=== PATIENT | female | born 1985 | race Caucasian/White ===

== ENCOUNTER 2019-01-11 16:59 | Inpatient (IN) | payer OTHER ==
--- NOTE | 2019-01-11 17:14 | ED ---
General Adult HPI - General Chief complaint: Arrhythmia/Palpitations Stated complaint: AFIB Time Seen by Provider: 01/11/19 17:03 Source: patient, EMS, RN notes reviewed Mode of arrival: EMS Limitations: no limitations - History of Present Illness Initial comments: Patient is a pleasant 33-year-old female presenting to the emergency Department with palpitations. Onset of symptoms was prior to arrival. Patient did not feel well and had palpitations with associated nausea. Patient did vomit once. Patient did have some mild dyspnea earlier however that has resolved. Patient still has palpitations however mild at this time. No history of similar symptoms previously. EMS did have concern for atrial flutter with RVR. Rate was up to 200. Amiodarone was provided, 150 mg and patient states symptoms have improved however not resolved. No chest pain. - Related Data Home Medications Medication Instructions Recorded Confirmed Ergocalciferol [Vitamin D2 50,000 unit PO MO 01/11/19 01/11/19 (DRISDOL)] Sertraline [Zoloft] 100 mg PO DAILY 01/11/19 01/11/19 Allergies Allergy/AdvReac Type Severity Reaction Status Date / Time No Known Allergies Allergy Verified 01/11/19 17:24 Review of Systems ROS Statement: Those systems with pertinent positive or pertinent negative responses have been documented in the HPI. ROS Other: All systems not noted in ROS Statement are negative. Constitutional: Denies: fever Eyes: Denies: eye pain ENT: Denies: ear pain Respiratory: Denies: cough Cardiovascular: Reports: palpitations. Denies: chest pain Endocrine: Denies: fatigue Gastrointestinal: Denies: abdominal pain Genitourinary: Denies: dysuria Musculoskeletal: Denies: back pain Skin: Denies: rash Neurological: Denies: weakness Past Medical History Past Medical History: Atrial Fibrillation History of Any Multi-Drug Resistant Organisms: None Reported Past Surgical History: Cholecystectomy Additional Past Surgical History / Comment(s): csection Past Psychological History: Depression Smoking Status: Never smoker Past Alcohol Use History: Rare Past Drug Use History: None Reported General Exam Limitations: no limitations General appearance: alert, in no apparent distress Head exam: Present: atraumatic Eye exam: Present: normal appearance, PERRL ENT exam: Present: normal oropharynx Neck exam: Present: normal inspection Respiratory exam: Present: normal lung sounds bilaterally Cardiovascular Exam: Present: tachycardia, irregular rhythm Expanded Peripheral pulses: 2+: Radial (R), Radial (L), Dorsalis Pedis (R), Dorsalis Pedis (L) GI/Abdominal exam: Present: soft. Absent: tenderness Extremities exam: Present: normal inspection. Absent: pedal edema, calf tenderness Neurological exam: Present: alert Psychiatric exam: Present: normal affect, normal mood Skin exam: Present: normal color Course Vital Signs 01/11/19 01/11/19 17:01 17:44 Temperature 97.7 F Pulse Rate 148 H 140 H Respiratory 20 16 Rate Blood Pressure 106/93 107/85 O2 Sat by Pulse 100 97 Oximetry - Reevaluation(s) Reevaluation #1: 01/11/19 17:13 Case was discussed in detail with Dr. Arauz, who does recommend switching to Cardizem. He will be placed on consult. EKG Findings - EKG Comments: EKG Findings:: Atrial flutter with a rate of 148. QRS 90. QT 318. QTC 499. Normal axis. LVH with repolarization change. Nonspecific T waves. Medical Decision Making - Medical Decision Making Patient reevaluated and resting comfortably in bed. Systolic pressure pressure 107. Heart rate 122 and variable. Patient and family updated on results and plan. Echo will be ordered. nurse practitioner physicians assistant: Patient was placed on coil repair technician secondary to arrhythmia and for monitoring purposes. Heart rate is atrial fibrillation with rate vary ing between 90 and 1:30. Dr. lyn has been paged for admission, covering for Dr. Mcleod. - Lab Data Result diagrams: 01/11/19 17:10 01/11/19 17:10 Lab Results 01/11/19 01/11/19 01/11/19 Range/Units 17:10 17:10 17:10 WBC 9.2 (3.8-10.6) k/uL RBC 5.16 (3.80-5.40) m/uL Hgb 15.5 (11.4-16.0) gm/dL Hct 45.5 (34.0-46.0) % MCV 88.3 (80.0-100.0) fL MCH 30.1 (25.0-35.0) pg MCHC 34.1 (31.0-37.0) g/dL RDW 14.5 (11.5-15.5) % Plt Count 148 L (150-450) k/uL Neutrophils % 64 % Lymphocytes % 27 % Monocytes % 4 % Eosinophils % 3 % Basophils % 2 % Neutrophils # 5.9 (1.3-7.7) k/uL Lymphocytes # 2.5 (1.0-4.8) k/uL Monocytes # 0.3 (0-1.0) k/uL Eosinophils # 0.2 (0-0.7) k/uL Basophils # 0.1 (0-0.2) k/uL PT 11.2 (9.0-12.0) sec INR 1.1 (<1.2) APTT 25.6 (22.0-30.0) sec Sodium 141 (137-145) mmol/L Potassium 4.0 (3.5-5.1) mmol/L Chloride 109 H (98-107) mmol/L Carbon Dioxide 21 L (22-30) mmol/L Anion Gap 11 mmol/L BUN 18 H (7-17) mg/dL Creatinine 0.72 (0.52-1.04) mg/dL Est GFR (CKD-EPI)AfAm >90 (>60 ml/min/1.73 sqM) Est GFR (CKD-EPI)NonAf >90 (>60 ml/min/1.73 sqM) Glucose 100 H (74-99) mg/dL Calcium 8.9 (8.4-10.2) mg/dL Magnesium 1.8 (1.6-2.3) mg/dL Total Bilirubin 0.9 (0.2-1.3) mg/dL AST 33 (14-36) U/L ALT 49 (9-52) U/L Alkaline Phosphatase 149 H (38-126) U/L Troponin I (0.000-0.034) ng/mL Total Protein 7.1 (6.3-8.2) g/dL Albumin 4.1 (3.5-5.0) g/dL 01/11/19 Range/Units 17:10 WBC (3.8-10.6) k/uL RBC (3.80-5.40) m/uL Hgb (11.4-16.0) gm/dL Hct (34.0-46.0) % MCV (80.0-100.0) fL MCH (25.0-35.0) pg MCHC (31.0-37.0) g/dL RDW (11.5-15.5) % Plt Count (150-450) k/uL Neutrophils % % Lymphocytes % % Monocytes % % Eosinophils % % Basophils % % Neutrophils # (1.3-7.7) k/uL Lymphocytes # (1.0-4.8) k/uL Monocytes # (0-1.0) k/uL Eosinophils # (0-0.7) k/uL Basophils # (0-0.2) k/uL PT (9.0-12.0) sec INR (<1.2) APTT (22.0-30.0) sec Sodium (137-145) mmol/L Potassium (3.5-5.1) mmol/L Chloride (98-107) mmol/L Carbon Dioxide (22-30) mmol/L Anion Gap mmol/L BUN (7-17) mg/dL Creatinine (0.52-1.04) mg/dL Est GFR (CKD-EPI)AfAm (>60 ml/min/1.73 sqM) Est GFR (CKD-EPI)NonAf (>60 ml/min/1.73 sqM) Glucose (74-99) mg/dL Calcium (8.4-10.2) mg/dL Magnesium (1.6-2.3) mg/dL Total Bilirubin (0.2-1.3) mg/dL AST (14-36) U/L ALT (9-52) U/L Alkaline Phosphatase (38-126) U/L Troponin I <0.012 (0.000-0.034) ng/mL Total Protein (6.3-8.2) g/dL Albumin (3.5-5.0) g/dL - Radiology Data Radiology results: image reviewed (Chest x-ray does show enlarged cardiac silhouette. Right atelectasis versus infiltrate.) Critical Care Time Critical Care Time: Yes Total Critical Care Time: 33 Disposition Clinical Impression: Atrial flutter, Tachycardia Disposition: ADMITTED IP TO THIS HOSP Is patient prescribed a controlled substance at d/c from ED?: No Referrals: Paty Mcleod DO [Primary Care Provider] - 1-2 days Decision Time: 17:50
[2019-01-11 17:22] LABS: Basophils # (A) 0.1 k/uL (0-0.2); Basophils % (A) 2 %; Eosinophils # (A) 0.2 k/uL (0-0.7); Eosinophils % (A) 3 %; HCT 45.5 % (34.0-46.0); HGB 15.5 gm/dL (11.4-16.0); Lymphocytes # (A) 2.5 k/uL (1.0-4.8); Lymphocytes % (A) 27 %; MCH 30.1 pg (25.0-35.0); MCHC 34.1 g/dL (31.0-37.0); MCV 88.3 fL (80.0-100.0); Mean Platelet Volume 10.3; Monocytes # (A) 0.3 k/uL (0-1.0); Monocytes % (A) 4 %; Neutrophils # (A) 5.9 k/uL (1.3-7.7); Neutrophils % (A) 64 %; Platelet Count 148 k/uL (150-450); RBC 5.16 m/uL (3.80-5.40); RDW 14.5 % (11.5-15.5); WBC 9.2 k/uL (3.8-10.6)
--- NOTE | 2019-01-11 17:26 | XR ---
EXAMINATION TYPE: XR chest 1V portable DATE OF EXAM: 01/11/2019 COMPARISON: NONE HISTORY: Arrhythmia TECHNIQUE: Single frontal view of the chest is obtained. FINDINGS: There is no focal air space opacity, pleural effusion, or pneumothorax seen. The cardiac silhouette size is enlarged. The osseous structures are intact. IMPRESSION: 1. Right basilar airspace disease that may represent atelectasis or pneumonia. 2. Enlarged cardiac mediastinal silhouette. Consideration for echocardiogram should be given to exclu de pericardial effusion and evaluate for cardiac function.
[2019-01-11 17:30] LABS: INR 1.1 (<1.2); Partial Thromboplastin Time 25.6 sec (22.0-30.0); Prothrombin Time 11.2 sec (9.0-12.0)
[2019-01-11 17:31] LABS: ALT 49 U/L (9-52); AST 33 U/L (14-36); African American GFR (CKD) >90 (>60 ml/min/1.73 sqM); Albumin 4.1 g/dL (3.5-5.0); Alkaline Phosphatase 149 U/L (38-126); Anion Gap 11 mmol/L; Blood Urea Nitrogen 18 mg/dL (7-17); Calcium 8.9 mg/dL (8.4-10.2); Carbon Dioxide 21 mmol/L (22-30); Chloride 109 mmol/L (98-107); Glucose 100 mg/dL (74-99); Magnesium 1.8 mg/dL (1.6-2.3); Sodium 141 mmol/L (137-145); Total Bilirubin 0.9 mg/dL (0.2-1.3); Total Protein 7.1 g/dL (6.3-8.2)
[2019-01-11] MEDS: DILTIAZEM 125 MG in SODIUM CHLORIDE 0.9% 100 ML IV SCH (17:33)
[2019-01-11] MEDS ORDERED: HEPARIN SODIUM,PORCINE 5,000 UNIT/ML 1 ML VIAL IV ONE (17:50)
[2019-01-11] MEDS ORDERED: HEPARIN SODIUM,PORCINE 5,000 UNIT/ML 1 ML VIAL IV PRN (17:50)
[2019-01-11] MEDS ORDERED: ASPIRIN 81 MG PO STA (17:50)
[2019-01-11] MEDS: HEPARIN SOD,PORK IN 0.45% NACL 25,000 UNIT in 0.45% NACL 1 250ML.BAG IV SCH (18:51)
[2019-01-11] MEDS: SODIUM CHLORIDE 0.9% 1,000 ML IV SCH (18:53)
[2019-01-12 07:08] LABS: Cholesterol 111 mg/dL (<200); HDL Cholesterol 34 mg/dL (40-60); LDL Cholesterol,Calculated 61 mg/dL (0-99); Triglycerides 80 mg/dL (<150)
[2019-01-12 07:19] LABS: Mean Platelet Volume 11.3; Platelet Count 180 k/uL (150-450)
[2019-01-12] MEDS: ASPIRIN 325 MG TAB PO SCH (08:24)
--- NOTE | 2019-01-12 09:26 | P.CRDCN ---
History of Present Illness Consult date: 01/12/19 Chief complaint: Palpitation History of present illness: This is a pleasant 33-year-old female patient with no significant cardiac history presented to the hospital complaining of palpitation and presyncope. The patient was in her usual state of health where she was at her home with her and after she took a nap she was sitting talking to him was suddenly she felt palpitations and heart racing associated with dizziness and lightheadedness and almost losing her consciousness. No symptoms of chest pain or chest discomfort, and no shortness of breath. Because of that she decided to come to the emergency room. In the emergency room the patient was found to be in atrial flutter with RVR and subsequently she was started on Cardizem drip as well as heparin drip and she was admitted to the hospital for further evaluation. Currently, the patient continues to be in atrial flutter was controlled heart rate. No history of atrial flutter before. No coronary artery disease, diabetes, hypertension, or dyslipidemia. She does have history of atrial fibrillation/atrial flutter with her father who long time ago. No major cardiovascular surgeries. The patient does not smoke or drink alcohol. The EKG reviewed and showed atrial flutter with variable block. The patient now is on heparin IV as well as Cardizem IV and the heart rate has been under good control. The patient stated that she does not have any history of sleep apnea and she does not snore during the night. TSH was checked and came in to be unremarkable. Past Medical History Past Medical History: Atrial Fibrillation Additional Past Medical History / Comment(s): Depression History of Any Multi-Drug Resistant Organisms: None Reported Past Surgical History: Cholecystectomy Additional Past Surgical History / Comment(s): csection Past Anesthesia/Blood Transfusion Reactions: No Reported Reaction Past Psychological History: Depression Smoking Status: Never smoker Past Alcohol Use History: Rare Past Drug Use History: None Reported - Past Family History Father Family Medical History: Cancer, Diabetes Mellitus Additional Family Medical History / Comment(s): "heart problems" possible murmur Mother Family Medical History: Cancer Additional Family Medical History / Comment(s): Allerigies Sister(s) Additional Family Medical History / Comment(s): orthopedic surgery, "heart problems" Medications and Allergies Home Medications Medication Instructions Recorded Confirmed Type Ergocalciferol [Vitamin D2 50,000 unit PO MO 01/11/19 01/11/19 History (DRISDOL)] Sertraline [Zoloft] 100 mg PO DAILY 01/11/19 01/11/19 History Allergies Allergy/AdvReac Type Severity Reaction Status Date / Time No Known Allergies Allergy Verified 01/11/19 17:24 Physical Exam Vitals: Vital Signs Temp Pulse Pulse Resp BP BP Pulse Ox 01/12/19 08:00 98.2 F 109 H 18 93/60 01/12/19 04:00 98.4 F 74 16 111/54 95 01/12/19 00:00 98.2 F 112 H 16 117/68 97 01/11/19 20:00 97.7 F 120 H 16 105/64 97 01/11/19 19:44 97.7 F 118 H 16 105/64 97 01/11/19 19:00 88 11 L 101/72 97 01/11/19 18:30 105 H 16 113/65 97 01/11/19 18:00 99 17 125/99 99 01/11/19 17:44 140 H 16 107/85 97 01/11/19 17:01 97.7 F 148 H 20 106/93 100 Intake and Output 01/11/19 01/12/19 01/12/19 22:59 06:59 14:59 Other: Voiding Method Toilet Toilet # Voids 1 1 Weight 87.997 kg 89.2 kg - Constitutional General appearance: no acute distress - Respiratory Respiratory: bilateral: CTA - Cardiovascular Rhythm: irregularly irregular Heart sounds: normal: S1, S2 Results 01/12/19 06:11 01/11/19 17:10 Cardiac Enzymes 01/11/19 01/11/19 01/12/19 Range/Units 17:10 17:10 00:13 AST 33 (14-36) U/L Troponin I <0.012 <0.012 (0.000-0.034) ng/mL 01/12/19 Range/Units 06:11 AST (14-36) U/L Troponin I <0.012 (0.000-0.034) ng/mL Coagulation 01/11/19 01/12/19 01/12/19 Range/Units 17:10 00:13 06:11 PT 11.2 (9.0-12.0) sec APTT 25.6 49.1 H 40.6 H (22.0-30.0) sec Lipids 01/12/19 Range/Units 06:11 Triglycerides 80 (<150) mg/dL Cholesterol 111 (<200) mg/dL HDL Cholesterol 34 L (40-60) mg/dL CBC 01/11/19 01/12/19 Range/Units 17:10 06:11 WBC 9.2 (3.8-10.6) k/uL RBC 5.16 (3.80-5.40) m/uL Hgb 15.5 (11.4-16.0) gm/dL Hct 45.5 (34.0-46.0) % Plt Count 148 L 180 (150-450) k/uL Comprehensive Metabolic Panel 01/11/19 Range/Units 17:10 Sodium 141 (137-145) mmol/L Potassium 4.0 (3.5-5.1) mmol/L Chloride 109 H (98-107) mmol/L Carbon Dioxide 21 L (22-30) mmol/L BUN 18 H (7-17) mg/dL Creatinine 0.72 (0.52-1.04) mg/dL Glucose 100 H (74-99) mg/dL Calcium 8.9 (8.4-10.2) mg/dL AST 33 (14-36) U/L ALT 49 (9-52) U/L Alkaline Phosphatase 149 H (38-126) U/L Total Protein 7.1 (6.3-8.2) g/dL Albumin 4.1 (3.5-5.0) g/dL Current Medications Generic Name Dose Route Start Last Admin Trade Name Angelq PRN Reason Stop Dose Admin Aspirin 325 mg 01/12/19 09:00 01/12/19 08:24 Aspirin PO 325 mg DAILY CARMELLA Administration Heparin Sodium (Porcine) 0 unit 01/11/19 17:50 Heparin IV Q6HR PRN Low PTT Protocol Diltiazem HCl 125 mg/ Sodium 125 mls @ 5 mls/hr 01/11/19 17:15 01/11/19 17:33 Chloride IV 5 mg/hr .Q24H CARMELLA 5 mls/hr Administration 5 MG/HR Heparin Sodium/Sodium Chloride 250 mls @ 9.944 mls/hr 01/11/19 18:00 01/11/19 18:51 25,000 unit/ Sodium Chloride IV 11.3 units/kg/hr .Q24H CARMELLA 9.944 mls/hr Administration Protocol 11.3 UNITS/KG/HR Sodium Chloride 1,000 mls @ 20 mls/hr 01/11/19 18:00 01/11/19 18:53 Saline 0.9% IV 20 mls/hr .Q24H CARMELLA Administration Intake and Output 01/11/19 01/12/19 01/12/19 22:59 06:59 14:59 Other: Voiding Method Toilet Toilet # Voids 1 1 Weight 87.997 kg 89.2 kg 01/12/19 06:11 01/11/19 17:10 Assessment and Plan Assessment: Assessment #1 typical atrial flutter Plan #1 I did recommend obtaining an EP consult and possible atrial flutter ablation #2 we'll follow-up on the echocardiogram #3 the TSH was checked #4 possible sleep study as an outpatient #5 follow-up with the patient
--- NOTE | 2019-01-12 11:40 | P.HPIM ---
History of Present Illness 33-year-old pleasant female came in with compensative palpitations presyncopal dizziness. Patient denied any fever chills nausea vomiting. Patient is found to be in atrial flutter. Telemetry patient appears to have on and off A. fib as well. Patient on Cardizem drip cardio evaluate the patient patient is on IV heparin. TSH is within normal limits patient denied any symptoms of sepsis fever or any infection. Patient is not dehydrated although labs are essentially not significantly abnormal. Patient will be evaluated by electrophysiology. Patient is on Zoloft dose was increased from 50-100, selective serotonin reuptake inhibitors can sometimes cause tachyarrhythmias. Review of Systems REVIEW OF SYSTEMS: CONSTITUTIONAL: No fever, no malaise, no fatigue. HEENT: No recent visual problems or hearing problems. Denied any sore throat. CARDIOVASCULAR: No chest pain, orthopnea, PND, no syncope. PULMONARY: No shortness of breath, no cough, no hemoptysis. GASTROINTESTINAL: No diarrhea, no nausea, no vomiting, no abdominal pain. NEUROLOGICAL: No headaches, no weakness, no numbness. HEMATOLOGICAL: Denies any bleeding or petechiae. GENITOURINARY: Denies any burning micturition, frequency, or urgency. MUSCULOSKELETAL/RHEUMATOLOGICAL: Denies any joint pain, swelling, or any muscle pain. ENDOCRINE: Denies any polyuria or polydipsia. The rest of the 14-point review of systems is negative. Past Medical History Past Medical History: Atrial Fibrillation Additional Past Medical History / Comment(s): Depression History of Any Multi-Drug Resistant Organisms: None Reported Past Surgical History: Cholecystectomy Additional Past Surgical History / Comment(s): csection Past Anesthesia/Blood Transfusion Reactions: No Reported Reaction Past Psychological History: Depression Smoking Status: Never smoker Past Alcohol Use History: Rare Past Drug Use History: None Reported - Past Family History Father Family Medical History: Cancer, Diabetes Mellitus Additional Family Medical History / Comment(s): "heart problems" possible murmur Mother Family Medical History: Cancer Additional Family Medical History / Comment(s): Allerigies Sister(s) Additional Family Medical History / Comment(s): orthopedic surgery, "heart problems" Medications and Allergies Home Medications Medication Instructions Recorded Confirmed Type Ergocalciferol [Vitamin D2 50,000 unit PO MO 01/11/19 01/11/19 History (DRISDOL)] Sertraline [Zoloft] 100 mg PO DAILY 01/11/19 01/11/19 History Allergies Allergy/AdvReac Type Severity Reaction Status Date / Time No Known Allergies Allergy Verified 01/11/19 17:24 Physical Exam Vitals: Vital Signs Temp Pulse Pulse Resp BP BP Pulse Ox 01/12/19 08:00 98.2 F 109 H 18 93/60 01/12/19 04:00 98.4 F 74 16 111/54 95 01/12/19 00:00 98.2 F 112 H 16 117/68 97 01/11/19 20:00 97.7 F 120 H 16 105/64 97 01/11/19 19:44 97.7 F 118 H 16 105/64 97 01/11/19 19:00 88 11 L 101/72 97 01/11/19 18:30 105 H 16 113/65 97 01/11/19 18:00 99 17 125/99 99 01/11/19 17:44 140 H 16 107/85 97 01/11/19 17:01 97.7 F 148 H 20 106/93 100 Intake and Output 01/11/19 01/12/19 01/12/19 22:59 06:59 14:59 Other: Voiding Method Toilet Toilet # Voids 1 1 Weight 87.997 kg 89.2 kg PHYSICAL EXAMINATION: GENERAL: The patient is alert and oriented x3, not in any acute distress. Well developed, well nourished. HEENT: Pupils are round and equally reacting to light. EOMI. No scleral icterus. No conjunctival pallor. Normocephalic, atraumatic. No pharyngeal erythema. No t hyromegaly. CARDIOVASCULAR: S1 and S2 present. No murmurs, rubs, or gallops. PULMONARY: Chest is clear to auscultation, no wheezing or crackles. ABDOMEN: Soft, nontender, nondistended, normoactive bowel sounds. No palpable organomegaly. MUSCULOSKELETAL: No joint swelling or deformity. EXTREMITIES: No cyanosis, clubbing, or pedal edema. NEUROLOGICAL: Gross neurological examination did not reveal any focal deficits. SKIN: No rashes. Results CBC & Chem 7: 01/12/19 06:11 01/11/19 17:10 Labs: Abnormal Lab Results - Last 24 Hours (Table) 01/11/19 01/11/19 01/12/19 Range/Units 17:10 17:10 00:13 Plt Count 148 L (150-450) k/uL APTT 49.1 H (22.0-30.0) sec Chloride 109 H (98-107) mmol/L Carbon Dioxide 21 L (22-30) mmol/L BUN 18 H (7-17) mg/dL Glucose 100 H (74-99) mg/dL Alkaline Phosphatase 149 H (38-126) U/L HDL Cholesterol (40-60) mg/dL 01/12/19 01/12/19 Range/Units 06:11 06:11 Plt Count (150-450) k/uL APTT 40.6 H (22.0-30.0) sec Chloride (98-107) mmol/L Carbon Dioxide (22-30) mmol/L BUN (7-17) mg/dL Glucose (74-99) mg/dL Alkaline Phosphatase (38-126) U/L HDL Cholesterol 34 L (40-60) mg/dL Thrombosis Risk Factor Assmnt - Choose All That Apply Any of the Below Risk Factors Present?: No Other Risk Factors: No Thrombosis Risk Factor Assessment Level: Very Low Risk Assessment and Plan Plan: -Palpitations and near-syncope: Secondary to tachyarrhythmia most probably atrial flutter with medications. Patient has appears to be in atrial fibrillation as well can use Cardizem cardiology evaluated the patient patient will be evaluated by electrophysiology for possible atrial flutter ablation. -Ruled out hypothyroidism -Depression continue with the sertraline. -Hyperchloremia due to IV fluids. -Non-anion gap metabolic acidosis secondary to hyperchloremia IV fluids will be discontinued
--- NOTE | 2019-01-12 14:05 | ECHOF ---
Referral Reason:a flutter MEASUREMENTS -------- HEIGHT: 162.6 cm WEIGHT: 88.9 kg BP: IVSd: 1.8 cm (0.6 - 1.1) LVIDd: 3.4 cm (3.9 - 5.3) LVPWd: 1.9 cm (0.6 - 1.1) IVSs: 1.9 cm LVIDs: 2.5 cm LVPWs: 1.7 cm LA Diam: 5.0 cm (2.7 - 3.8) LAESV Index (A-L): 59.01 ml/m Ao Diam: 2.4 cm (2.0 - 3.7) LA Diam: 5.4 cm (2.7 - 3.8) AV Cusp: 1.3 cm (1.5 - 2.6) EPSS: 0.3 cm MV E Ezequiel: 0.52 m/s MV DecT: 128 ms MV A Ezequiel: 0.26 m/s MV E/A Ratio: 1.98 RAP: 5.00 mmHg RVSP: 16.30 mmHg MV EF SLOPE: 49.13 mm/s (70 - 150) MV EXCURSION: 12.84 mm (> 18.000) FINDINGS -------- Undetermined rhythm. This was a technically good study. There is severe concentric left ventricular hypertrophy. There is mild global hypokinesis of LV . Overall left ventricular systolic function is low-normal with, an EF between 50 - 55 %. pT IN AFIB RPT STUDY FOR LV FUNCTION REASSESSMENT WHEN IN SINUS RHYTHM The right ventricle is normal in size. The left atrium is markedly dilated. LA is severely dilated >40 ml/m2 The right atrial size is normal. The aortic valve is trileaflet, and appears structurally normal. No aortic stenosis or regurgitation. Mild mitral annular calcification present. Mild mitral regurgitation is present. No regurgitation noted The right ventricular systolic pressure, as measured by Doppler, is 16.30mmH g. There is no pulmonic regurgitation present. The aortic root size is normal. Echo free space represents a pericardial fat pad. CONCLUSIONS -------- 1. This was a technically good study. 2. There is severe concentric left ventricular hypertrophy. 3. There is mild global hypokinesis of LV . 4. The right ventricle is normal in size. 5. The left atrium is markedly dilated. 6. LA is severely dilated >40 ml/m2 7. The right atrial size is normal. 8. The aortic valve is trileaflet, and appears structurally normal. No aortic stenosis or regurgitati on. 9. Mild mitral annular calcification present. 10. Mild mitral regurgitation is present. 11. No regurgitation noted 12. The right ventricular systolic pressure, as measured by Doppler, is 16.30mmHg. 13. There is no pulmonic regurgitation present. 14. The aortic root size is normal. 15. Echo free space represents a pericardial fat pad. MOTOR POLARIZER: Jennifer Montoya RDCS
[2019-01-12] MEDS: DILTIAZEM 125 MG in SODIUM CHLORIDE 0.9% 100 ML IV SCH (17:45)
[2019-01-12] MEDS: SODIUM CHLORIDE 0.9% 1,000 ML IV SCH ×2 (17:46→23:30)
[2019-01-12] MEDS: HEPARIN SOD,PORK IN 0.45% NACL 25,000 UNIT in 0.45% NACL 1 250ML.BAG IV SCH (17:49)
[2019-01-13 06:38] LABS: Mean Platelet Volume 10.5; Platelet Count 158 k/uL (150-450)
[2019-01-13] MEDS: ASPIRIN 325 MG TAB PO SCH (08:40)
--- NOTE | 2019-01-13 10:51 | P.PN ---
Subjective Progress Note Date: 01/13/19 Principal diagnosis: Paroxysmal atrial fibrillation This is a pleasant 33-year-old female patient with no significant cardiac history who was admitted to the hospital with symptoms of heart racing and fluttering and was found to be in atrial fibrillation which was new to her. She is currently in atrial fibrillation with RVR in spite being on Cardizem IV. Beside that she is on also heparin IV for anticoagulation. She underwent an echocardiogram which showed evidence off apical hypertrophic obstructive cardiomyopathy and mid ventricle hypertrophic obstructive cardiomyopathy. The patient does have a family history of sudden cardiac . On follow-up with her today, January [id number], she continues to be in atrial fibrillation with RVR. She scheduled to undergo a BENNY and cardioversion later on today. Objective - Vital Signs Vital signs: Vital Signs Temp 98.2 F 01/13/19 04:52 Pulse 119 H 01/13/19 04:52 Resp 16 01/13/19 04:52 BP 110/74 01/13/19 04:52 Pulse Ox 98 01/13/19 04:52 Intake & Output 01/12/19 01/13/19 01/13/19 18:59 06:59 18:59 Intake Total 829.381 Balance 829.381 Weight 89.6 kg Intake: Intake, IV Titration 349.381 Amount Diltiazem 125 mg In 121 Sodium Chloride 0.9% 100 ml @ 5 MG/HR 5 mls/hr IV .Q24H CARMELLA Rx#:[id number] Heparin Sod,Pork in 0.45% 228.381 NaCl 25,000 unit In 0.45 % NaCl 1 250ml.bag @ 11.3 UNITS/KG/HR 9.944 mls/hr IV .Q24H CARMELLA Rx#: [id number] Oral 480 Other: Voiding Method Toilet # Voids 4 1 - Constitutional General appearance: Present: no acute distress - Respiratory Respiratory: bilateral: CTA - Cardiovascular Rhythm: irregularly irregular Heart sounds: normal: S1, S2 Abnormal Heart Sounds: Present: systolic murmur - Labs CBC & Chem 7: 01/13/19 06:08 01/11/19 17:10 Labs: Abnormal Lab Results - Last 24 Hours (Table) 01/12/19 01/13/19 Range/Units 12:55 06:08 APTT 52.5 H 62.6 H (22.0-30.0) sec Assessment and Plan Assessment: Assessment #1 hypertrophic cardiomyopathy #2 paroxysmal atrial fibrillation Plan Continue the current medical regimen Proceed with BENNY cardioversion
--- NOTE | 2019-01-13 12:32 | P.PN ---
Subjective Patient was admitted for his new onset atrial fibrillation patient is still on Cardizem drip at 5 mg/h. Patient had consult with left ventricular hypertrophy patient will undergo cardioversion today Constitutional: Denied any fatigue denied any fever. Cardio vascular: denied any chest pain, palpitations Gastrointestinal denied any nausea vomiting Pulmonary: Denied any shortness of breath cough Neurologic denied any new focal deficits All inpatient medications were reviewed and appropriate changes in these medications as dictated in the interval history and assessment and plan. Objective - Vital Signs Vital signs: Vital Signs Temp 98.2 F 01/13/19 04:52 Pulse 119 H 01/13/19 04:52 Resp 16 01/13/19 04:52 BP 110/74 01/13/19 04:52 Pulse Ox 98 01/13/19 04:52 Intake & Output 01/12/19 01/13/19 01/13/19 18:59 06:59 18:59 Intake Total 829.381 Balance 829.381 Weight 89.6 kg Intake: Intake, IV Titration 349.381 Amount Diltiazem 125 mg In 121 Sodium Chloride 0.9% 100 ml @ 5 MG/HR 5 mls/hr IV .Q24H [facility] Rx#:[id number] Heparin Sod,Pork in 0.45% 228.381 NaCl 25,000 unit In 0.45 % NaCl 1 250ml.bag @ 11.3 UNITS/KG/HR 9.944 mls/hr IV .Q24H [facility] Rx#: [id number] Oral 480 Other: Voiding Method Toilet # Voids 4 1 - Exam PHYSICAL EXAMINATION: GENERAL: The patient is alert and oriented x3, not in any acute distress. Well developed, well nourished. HEENT: Pupils are round and equally reacting to light. EOMI. No scleral icterus. No conjunctival pallor. Normocephalic, atraumatic. No pharyngeal erythema. No thyromegaly. CARDIOVASCULAR: S1 and S2 present. No murmurs, rubs, or gallops. Tachycardic irregularly regular rhythm PULMONARY: Chest is clear to auscultation, no wheezing or crackles. ABDOMEN: Soft, nontender, nondistended, normoactive bowel sounds. No palpable organomegaly. MUSCULOSKELETAL: No joint swelling or deformity. EXTREMITIES: No cyanosis, clubbing, or pedal edema. NEUROLOGICAL: Gross neurological examination did not reveal any focal deficits. SKIN: No rashes. - Labs CBC & Chem 7: 01/13/19 06:08 01/11/19 17:10 Labs: Abnormal Lab Results - Last 24 Hours (Table) 01/12/19 01/13/19 Range/Units 12:55 06:08 APTT 52.5 H 62.6 H (22.0-30.0) sec Assessment and Plan Plan: -Proximal atrial fibrillation with rapid ventricular rate: Cardio today continue with the Cardizem -Hypertrophic cardio myopathy -Ruled out hypothyroidism -Depression continue with the sertraline. -Hyperchloremia due to IV fluids. -Non-anion gap metabolic acidosis secondary to hyperchloremia IV fluids were discontinued
[2019-01-13] MEDS ORDERED: SODIUM CHLORIDE 0.9% 1,000 ML IV ONE (13:02)
[2019-01-13] MEDS: DILTIAZEM 125 MG in SODIUM CHLORIDE 0.9% 100 ML IV SCH (18:47)
[2019-01-13] MEDS: HEPARIN SOD,PORK IN 0.45% NACL 25,000 UNIT in 0.45% NACL 1 250ML.BAG IV SCH (18:49)
[2019-01-13] MEDS: SODIUM CHLORIDE 0.9% 1,000 ML IV SCH ×2 (18:50)
[2019-01-14 07:15] LABS: Mean Platelet Volume 10.4; Platelet Count 150 k/uL (150-450)
[2019-01-14 07:25] LABS: African American GFR (CKD) >90 (>60 ml/min/1.73 sqM); Anion Gap 8 mmol/L; Blood Urea Nitrogen 16 mg/dL (7-17); Calcium 9.3 mg/dL (8.4-10.2); Carbon Dioxide 23 mmol/L (22-30); Chloride 109 mmol/L (98-107); Glucose 106 mg/dL (74-99); Potassium 4.2 mmol/L (3.5-5.1); Sodium 140 mmol/L (137-145)
[2019-01-14 08:02] VITALS: RESP 16; TEMP 98.3
[2019-01-14] MEDS: ASPIRIN 325 MG TAB PO SCH (08:30)
[2019-01-14] MEDS ORDERED: METOPROLOL TARTRATE 25 MG TAB PO STA (09:55)
--- NOTE | 2019-01-14 09:55 | P.PN ---
Subjective Progress Note Date: 01/14/19 Principal diagnosis: Paroxysmal atrial fibrillation This is a pleasant 33-year-old female patient with no significant cardiac history who was admitted to the hospital with symptoms of heart racing and fluttering and was found to be in atrial fibrillation which was new to her. She is currently in atrial fibrillation with RVR in spite being on Cardizem IV. Beside that she is on also heparin IV for anticoagulation. She underwent an echocardiogram which showed evidence off apical hypertrophic obstructive cardiomyopathy and mid ventricle hypertrophic obstructive cardiomyopathy. The patient does have a family history of sudden cardiac . On follow-up with the patient today, January 142018, the patient is in normal sinus mechanism which she is on Cardizem drip at this point. I'm going to DC the Cardizem drip, start metoprolol by mouth, start oral anticoagulation, and possible discharge home in the next 24 hours. Objective - Vital Signs Vital signs: Vital Signs Temp 98.3 F 01/14/19 08:00 Pulse 69 01/14/19 08:00 Resp 16 01/14/19 08:00 BP 118/72 01/14/19 08:00 Pulse Ox 95 01/14/19 08:00 Intake & Output 01/13/19 01/14/19 01/14/19 18:59 06:59 18:59 Intake Total 733.6 725.167 Output Total 200 Balance 533.6 725.167 Intake: IV 0 290 Diltiazem 125 mg In 50 Sodium Chloride 0.9% 100 ml @ 5 MG/HR 5 mls/hr IV .Q24H [facility] Rx#:[id number] Heparin Sod,Pork in 0.45% 80 NaCl 25,000 unit In 0.45 % NaCl 1 250ml.bag @ 11.3 UNITS/KG/HR 9.944 mls/hr IV .Q24H [facility] Rx#: [id number] Sodium Chloride 0.9% 1, 160 000 ml @ 20 mls/hr IV . Q24H [facility] Rx#:[id number] Intake, IV Titration 373.6 75.167 Amount Diltiazem 125 mg In 125 75.167 Sodium Chloride 0.9% 100 ml @ 5 MG/HR 5 mls/hr IV .Q24H [facility] Rx#:[id number] Heparin Sod,Pork in 0.45% 248.6 NaCl 25,000 unit In 0.45 % NaCl 1 250ml.bag @ 11.3 UNITS/KG/HR 9.944 mls/hr IV .Q24H [facility] Rx#: [id number] Oral 360 360 Output: Urine 200 Other: Voiding Method Toilet Toilet Toilet # Voids 2 1 - Constitutional General appearance: Present: no acute distress - Respiratory Respiratory: bilateral: CTA - Cardiovascular Rhythm: regular Heart sounds: normal: S1, S2 - Labs CBC & Chem 7: 01/14/19 06:56 01/14/19 06:56 Labs: Abnormal Lab Results - Last 24 Hours (Table) 01/13/19 01/14/19 01/14/19 Range/Units 06:08 06:56 06:56 APTT 47.4 H (22.0-30.0) sec Chloride 109 H (98-107) mmol/L Glucose 106 H (74-99) mg/dL Ferritin 383.1 H (10.0-291.0) ng/mL Assessment and Plan Assessment: Assessment #1 hypertrophic cardiomyopathy #2 paroxysmal atrial fibrillation Plan Continue the current medical regimen DC Cardizem drip and start metoprolol by mouth as well as start oral anticoagulation Discharge home
[2019-01-14] MEDS ORDERED: APIXABAN 5 MG TAB PO STA (10:02)
[2019-01-14 11:20] VITALS: BP 109/70; PULSE 59
[2019-01-14] MEDS ORDERED: METOPROLOL TARTRATE 25 MG TAB PO SCH (16:00)
[2019-01-14] MEDS ORDERED: APIXABAN 5 MG TAB PO SCH (21:00)
--- NOTE | 2019-01-15 06:14 | DS ---
DISCHARGE SUMMARY FINAL DIAGNOSES: 1. Paroxysmal atrial fibrillation with rapid ventricular rate, improved. 2. Hypertrophic cardiomyopathy. 3. Depression. 4. Hyperchloremia. DISCHARGE DISPOSITION: The patient will be discharged in stable condition with guarded prognosis. Discharge cleared by Cardiology. HISTORY OF PRESENT ILLNESS: This 33-year-old woman with a past medical history of multiple medical problems admitted with paroxysmal atrial fibrillation. Cardiology saw the patient. Patient's medications were adjusted. Patient improved significantly. Cardiology cleared the patient for discharge. The patient follows with Dr. Rivers in the outpatient setting. On exam, vitals are stable. CARDIOVASCULAR: S1, S2 normal. ABDOMEN: Soft. NERVOUS SYSTEM: No focal deficit. The labs are reviewed. DISCHARGE ADVICE AND MEDICATIONS: 1. Diet is cardiac. 2. Activity limited until followup. 3. Follow up with Dr. Rivers 2 to 3 days. 4. Follow up with Cardiology as recommended. Medications are: 1. Drisdol 50,000 p.o. Saturday. 2. Zoloft 100 mg p.o. daily. 3. Eliquis 5 mg p.o. b.i.d. 4. Lopressor 25 mg p.o. t.i.d. Once again, the patient will be discharged in stable condition with guarded prognosis. MMODL / IJN: [id number] /
== END 2019-01-14 15:26 | disposition home or self-care (01) | DRG 309 ==
LOC: EC 16:59 → OBSVTOIN 17:50 → 3SCARD 17:50
PROVIDERS: ADMIT Internal Medicine; ATTEND Internal Medicine
PROC: 5A2204Z Restoration of Cardiac Rhythm, Single (ICD-10-PCS; principal; 2019-01-13)
PROC: B246ZZ4 Ultrasonography of Right and Left Heart, Transesophageal (ICD-10-PCS; 2019-01-13)
DX: I48.3 Typical atrial flutter (principal); E87.2 Acidosis; I48.0 Paroxysmal atrial fibrillation; I42.1 Obstructive hypertrophic cardiomyopathy; E87.8 Other disorders of electrolyte and fluid balance, not elsewhere classified; F32.9 Major depressive disorder, single episode, unspecified; Z79.899 Other long term (current) drug therapy; Z82.41 Family history of sudden cardiac death; Z83.3 Family history of diabetes mellitus; Z80.9 Family history of malignant neoplasm, unspecified; Z90.49 Acquired absence of other specified parts of digestive tract
CPT/HCPCS: 36415; 71045; 80048; 80053; 80061; 81025; 82728; 83735; 84443; 84484; 85025; 85049; 85610; 85730; 93005; 93306; 96365; 96366; 96368; 96376; 99291